=== PATIENT | male | born 1950 | race Caucasian/White ===

== ENCOUNTER → 2017-12-12 11:03 | Outpatient (CLI) | payer OTHER, SELFPAY ==
--- NOTE | 2017-12-12 11:03 | ONE_ITS ---
DATE: DECEMBER 12, 2017 ASSESSMENT: Lumbar strain - resolved. PLAN: He can resume full duties which he says he has been close to over the last week or so. He will continue exercises and stretches which were taught to him by his chiropractor. I strongly emphasized that these need to continue to take place on a daily basis, preferably twice a day, to prevent reinjury. He seems to understand. I am placing him at [facility] today. Greater than 50% of this visit was spent in planning and coordinating care. EMPLOYER: [employer] SUBJECTIVE: Mr. Brennan returns for follow-up on left-sided lumbar pain which he tells me has continued to improve. In fact he estimates that he is at least 95% better. He did see a chiropractor once since his last visit here and those visits are now scheduled on an as needed basis. In general, he tells me that he has been pretty comfortable. He has even advanced his activities at work without much difficulty. He says on one day he had a tired sensation in the left lumbar region at the end of his workday but that did not last. He is not taking any medications. REVIEW OF SYSTEMS: He feels generally well without lower extremity numbness, tingling or paresthesias. No loss of bowel or bladder control. No chest pain, cough, wheeze or dyspnea. PAST MEDICAL HISTORY: 1. Cardiac disease with a myocardial infarction in 2000. He has been stable since. 2. Left knee injury last year which resolved. 3. Hernia repair in 2009. 4. Long standing history of back pain for decades, typically associated with sciatica which was not present during this current event. SOCIAL: He is . HABITS: He does not drink. He does not smoke. Exercises regularly but this is mostly throughout the functions of his job which is physically demanding. OBJECTIVE: Alert, pleasant, cooperative and in no acute distress. Gait is normal. He moves to and from examination room with ease. Musculoskeletal - there is no tenderness to direct palpation of the lumber vertebrae, none in either SI joint. DTRs - prepatellars are 1+ bilaterally. Achilles are 1+ bilaterally. Straight leg raises - each leg extends a full 90 degrees without discomfort. Range of motion - fingertips reach nearly to the floor level. There is no lumbar discomfort at the end of flexion, extension, lateral bend or rotation. Sensory of lower extremities is intact.
== END ==
PROVIDERS: PCP Family Medicine; Visit Provider Nurse Practitioner Family
DX: M54.5 Low back pain (principal); S39.012D Strain of muscle, fascia and tendon of lower back, subsequent encounter
CPT/HCPCS: 99214

== ENCOUNTER 2024-12-19 12:29 | Emergency (ER) | payer MEDICARE, SELFPAY ==
[2024-12-19 12:41] VITALS: BP 162/81; PULSE 73; RESP 16; TEMP 36.9; O2SAT 98
[2024-12-19 13:33] LABS: Glucose >=1000 mg/dL (Negative)
--- NOTE | 2024-12-19 13:45 | DI.CT_ITS ---
Exam(s) CT RENAL COLIC WO EXAM: CT RENAL COLIC WO CLINICAL HISTORY: right flank pain. TECHNIQUE: Imaging Protocol: Axial computed tomography images with coronal and sagittal reformatted images were created and reviewed. COMPARISON: CR ABD FLAT UPRIGHT PA CHEST from 12/30/2014 US RENAL ULTRASOUND(P) {[id number]} from 01/08/2015 FINDINGS: Lack of IV contrast does limit evaluation of the abdominal and pelvic organs. ABDOMEN: Lung Bases: Normal where visualized. Liver: Normal density. No measurable mass. Gallbladder and biliary tract: No radiodense calculus or biliary ductal dilation. Pancreas: Normal density, no abnormal calcifications or inflammatory process. Spleen: Normal. Kidneys: Normal size, contour and axis.There is bilateral nephrolithiasis. There is a 3 mm stone in the midpole of the right kidney. There is no ureterolithiasis or hydronephrosis. There is a 8 mm stone in the midpole of the left kidney. There is no hydronephrosis. There is a calcification in the left pelvis measuring 4 mm (series 2, image 339). There is no hydronephrosis present. This suggests that this calcification lies next to the ureter and represent of a phlebolith. A distal ureteral calculus should also be considered. There are bilateral parapelvic cysts. There also cysts in the low er pole of the left kidney. The largest measures 2.2 cm. No follow-up is recommended. Adrenal glands: No mass is seen. Lymph nodes: Within normal limits. Abdominal Aorta: Abdominal portion non-dilated. Atherosclerotic calcification is present. PELVIS: Bladder: There is thickening of the wall of the urinary bladder. The urinary bladder is incompletely distended which may account for the wall findings however, cystitis cannot be entirely excluded. Bowel: There is diverticulosis of the colon, but no evidence of acute diverticulitis present. Appendix is unremarkable. There is no evidence of bowel obstruction or bowel wall thickening. Peritoneal cavity: There is a small amount of pelvic ascites. No free air. Reproductive organs: The prostate gland is mildly enlarged. Bones: Within normal limits. Soft Tissues: There is a small fat containing umbilical hernia. There is soft tissue seen in the right inguinal region most suggestive of a prior right inguinal hernia repair. IMPRESSION: 1. There is a 4 mm calcification in the left pelvis. It appears lies adjacent to the left ureter. There is no proximal hydronephrosis present. This likely reflects a phlebolith. A distal ureteral stone cannot be entirely excluded. 2. Bilateral nephrolithiasis. There is no hydronephrosis. 3. Small amount of pelvic ascites. 4. Normal appendix. 5. No biliary ductal dilatation. 6. Colonic diverticulosis without evidence of acute diverticulitis. RADIATION DOSE DELIVERED: 501.22mGy.cm Total DLP DATA REPOSITORY: All CT scans at this facility are submitted to the National Radiology Data Registry (NRDR) Dose Index Registry (DIR) with the [employer] (ACR). RADIATION OPTIMIZATION: All CT scans at this facility use at least one of these dose optimization techniques: automated exposure control; mA and/or kV adjustment per patient size (includes targeted exams where dose is matched to clinical indication); or iterative reconstruction.
[2024-12-19 13:51] LABS: C & S Indicated? No; RBC 0-2 HPF (0-2); WBC Negative HPF (0-5)
--- NOTE | 2024-12-19 14:02 | W.ED.GENAD ---
Discharge Plan Disposition Patient Disposition: Home Condition: Stable Discharge Details Clinical Impression: Lumbar back pain Primary Care Provider: Unknown,Unknown ED Provider: Cy Ag Home Meds and New Rx's Prescriptions: Continued acetaminophen [Tylenol Extra Strength] 500 MG tablet 1,000 mg PO DAILY PRN ibuprofen [Advil] 200 MG tablet 400 mg PO PRN PRN tamsulosin 0.4 MG capsule 0.4 mg PO DAILY@0830 Qty: 7 0RF No Action aspirin 325 MG tablet 325 mg PO Daily prn Patient Comments: Pt states he hasn't been taking 01/08/15 rl Discharge Instructions Additional Instructions: Stones within your kidney but do not have any obstructing stones. You can take 1000 mg of acetaminophen and 600 g of ibuprofen every 6 hours as needed. If your symptoms not improving within a week follow-up with your primary care provider. If more ill or have new symptoms such as high fevers or severe abdominal pain return to the emergency department patient. HPI General Mode of arrival: ambulatory. Date/Time Provider Initiated Documentation: 12/19/24 12:48. Limitations to Documentation: no limitations. Information obtained by: patient. History of Present Illness 74 year old M presents to the emergency department with the chief complaint of right flank pain, described as moderate, Quality is described as aching, Patient started experiencing this day(s) (5) and it has been intermittent. No relieving factors improve symptom(s), No exacerbating factors reported . Patient notes no other symptoms.. Patient did receive the following treatments prior to arrival, none Related Data Home Medications ?Medication ?Instructions ?Recorded ?Confirmed aspirin 325 mg tablet 325 mg PO Daily prn 07/06/12 09/24/16 ibuprofen 200 mg tablet (Advil) 400 mg PO PRN PRN 09/01/12 09/24/16 acetaminophen 500 mg tablet 1,000 mg PO DAILY PRN 02/27/13 09/24/16 (Tylenol Extra Strength) tamsulosin 0.4 mg capsule 0.4 mg PO DAILY@0830 ##7 12/30/14 09/24/16 Previous Rx's ?Medication ?Instructions ?Recorded tamsulosin 0.4 mg capsule 0.4 mg PO DAILY@0830 ##7 12/30/14 Allergies Allergy/AdvReac Type Severity Reaction Status Date / Time No Known Allergies Allergy Unverified 12/19/24 12:44 General Stated Complaint: Urinary BRUNO: 3 Review of Systems All systems reviewed & are unremarkable except as noted in HPI and below Constitutional Constitutional: Denies chills, Denies fever(s) and Denies weakness Cardiovascular Cardiovascular: Denies chest pain and Denies dyspnea Respiratory Respiratory: Denies cough and Denies dyspnea Gastrointestinal Gastrointestinal: Denies abdominal pain, Denies nausea and Denies vomiting Genitourinary Genitourinary: Denies dysuria Musculoskeletal Musculoskeletal: Reports back pain Neurologic Neurologic: Denies weakness Exam Const General: no acute distress Orientation: alert HENMT Head: normal to inspection Ears: external ears normal General nose exam: external nose normal Mouth: moist mucous membranes Eyes General: appearance normal, both eyes and all related structures Neck Neck: normal visual inspection Resp Effort & Inspection: normal respiratory effort and able to speak in complete sentences Cardio Rate: regular rate Back/Spine/Pelvis Back: no CVA tenderness Skin General skin exam: no rashes or lesions noted Neuro General: patient alert and patient oriented x3 Extrem General: normal to inspection Psych Mental Status: mental status grossly normal Course Vital Signs Vital signs: Vital Signs Temperature 36.9 C 12/19/24 12:41 Pulse 73 12/19/24 12:41 Respiratory Rate 16 12/19/24 12:41 Blood Pressure 162/81 H 12/19/24 12:41 Pulse Oximetry 98 12/19/24 12:41 Temperature 36.9 C 12/19/24 12:41 Pulse 73 12/19/24 12:41 Respiratory Rate 16 12/19/24 12:41 Blood Pressure 162/81 H 12/19/24 12:41 Pulse Oximetry 98 12/19/24 12:41 Oxygen Delivery Method Room Air 12/19/24 12:41 Oxygen Flow Rate 0 12/19/24 12:41 Lab/Test Results Lab/Test Results: Laboratory Tests Range/Units 12/19/24 13:25 Urine Color (Yellow) Yellow Urine Clarity (Clear) Clear Urine pH (5-8) 6.0 Ur Specific [place] (1.005-1.025) 1.020 Urine Protein (Neg-Trace) mg/dL Trace Urine Ketones (Negative) mg/dL Trace H Urine Blood (Negative) Trace-intact H Urine Nitrite (Negative) Negative Urine Bilirubin (Negative) Negative Urine Urobilinogen (Up to 0.2) mg/dL 0.2 Ur Leukocyte Esterase (Negative) Negative Urine RBC (0-2) HPF 0-2 Urine WBC (0-5) HPF Negative Ur Epithelial Cells (Negative) HPF Negative Urine Crystals (Negative) HPF Negative Urine Bacteria (Negative) HPF Rare Urine Casts (Negative) LPF Negative Urine Mucus (Negative) Trace Urine Other (Negative) Negative Ur Culture Indicated? No Urine Glucose (Negative) mg/dL >=1000 H Medical Decision Making 74-year-old male who states he has a history of kidney stones but has not been seen in years but with acanthosis prior kidney stones. He denies any vomiting, fevers, chills, abdominal pain, inflammation. He says that throughout the day his pain is manageable. he is well-appearing on exam speaking full sentences. He has no CVA tenderness is localized to the right lower back. No visible palpable deformities. His most seizure. No leg swelling or calf tenderness. Intact sensation. He has no abdominal tenderness. Given his history we will check CBC CMP CT colic. Scheduled for musculoskeletal back pain as well. Labs without emergent findings. CT shows stones in the kidney but no obstructing ureteral stone. Patient is stable and has no complaints and still feels well. I suspect he could have musculoskeletal back pain. He will follow-up with the PCP if symptoms are improving and return precautions given Differential Diagnosis Differential Diagnosis: Kidney stone, back strain, muscle spasm Lab Data Lab results reviewed: Yes I reviewed the patient's lab results. PFSH All Active Problems (Updated 12/19/24 @ 15:44 by Cy Ag MD) Lumbar back pain (Acute) Social History Smoking/Tobacco Use Status: Former Tobacco Use Smoking risk assessment performed?: Yes Drug use: Never Do you feel safe in your relationship?: Yes
[2024-12-19 14:18] LABS: HCT 47.9 % (40.0-50.0); HGB 17.3 g/dL (13.5-17.5); MCH 32.2 pg (27.0-33.0); MCHC 36.1 % (32.0-36.0); MCV 89 fL (80-95); MPV 10.4 fL (8.0-11.0); Platelet Count 152 10^3/uL (130-400); RBC 5.38 10^6/uL (4.36-5.78); RDW 12.0 % (11.8-14.1); RDW-SD 39.2 fL; WBC 3.03 10^3/uL (4.4-10.8)
[2024-12-19 14:35] LABS: ALT 35 U/L (16-63); AST 22 U/L (15-37); Albumin 3.9 g/dL (3.4-5.0); Alkaline Phosphatase 66 U/L (46-116); Anion Gap 5.4 mmol/L (3-11); BUN 13 mg/dL (7-18); Bilirubin, Total 1.9 mg/dL (0.2-1.0); CO2 31.6 mmol/L (21.0-32.0); Calcium 8.7 mg/dL (8.5-10.1); Chloride 101 mmol/L (98-107); Estimated GFR 90.74 (mL/min/1.73m2); Glucose 243 mg/dL (74-106); Magnesium 2.1 mg/dL (1.8-2.4); Potassium 4.5 mmol/L (3.5-5.1); Sodium 138 mmol/L (136-145); Total Protein 7.3 g/dL (6.4-8.2)
[2024-12-19 15:53] VITALS: BP 162/81; PULSE 73; RESP 16; TEMP 36.9; O2SAT 98
== END 2024-12-19 15:53 | disposition home or self-care (01) ==
PROVIDERS: Emergency Provider Emergency Medicine
DX: M54.50 Low back pain, unspecified (principal); N20.0 Calculus of kidney
CPT/HCPCS: 99284; 99283; 80053; 85027; 74176; 81003; 81015; 83735